=== PATIENT | female | born 2000 | race Caucasian/White ===

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

== ENCOUNTER 2019-02-15 22:24 | Emergency (ER) | payer OTHER ==
[~2019-02-15] VITALS: Ht 162.6 cm; Wt 64.4 kg
[~2019-02-15 22:24] MED LIST changes: +ANUSOL-HC25 MG PR
--- OUTSIDE RECORDS SUMMARY | 2019-02-15 22:26 | XMS ---
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 Luz has no Care Guidelines for this patient. Care History Medical/Surgical 07/21/2018 [facility] - CHW RECEIVED- ED PHYSICIAN CONSULT- HELP PATIENT WITH SETTING UP INSURANCE AND WITH A PCP. - PATIENT PHONE NUMBER IS NO LONGER IN SERVICE. - CHW WILL SEND A NO PCP LETTER TO PATIENT. - PLEASE ASK FOR MOST RECENT-ACTIVE NUMBER FOR PATIENT - IF PATIENT IS SEEN IN THE ED DURING BUSINESS HOURS PLEASE CONTACT MESERET TO HAVE PATIENT SET UP WITH [phone]. E.D. VISIT COUNT (12 MO.) 3 [facility] TOTAL 3 NOTE: Visits indicate total known visits. ED/UCC VISIT TRACKING (12 MO.) 02/15/2019 22:25 [facility] [place] TYPE: Emergency COMPLAINT: - URINE PROBLEM, LOWER BACK PAIN NON INJURY 11/03/2018 14:00 [facility] [place] TYPE: Emergency COMPLAINT: - HEADACHE/NECK STIFFNESS DIAGNOSES: - Fever, unspecified - Viral infection, unspecified 07/18/2018 20:43 [facility] [place] TYPE: Emergency COMPLAINT: - ABD PAIN DIAGNOSES: - Residual hemorrhoidal skin tags - Melena INPATIENT VISIT TRACKING (12 MO.) No inpatient visits to display in this time frame [email or web address]
== END 2019-02-16 00:30 | disposition home or self-care (01) ==
LOC: ED 22:24
DX: R10.9 Unspecified abdominal pain (principal); G43.909 Migraine, unspecified, not intractable, without status migrainosus
CPT/HCPCS: 74176; 81001; 84703; 99284-25

== ENCOUNTER 2019-07-14 22:00 | Emergency (ER) | payer OTHER ==
[~2019-07-14] VITALS: Ht 162.6 cm; Wt 66.7 kg
[~2019-07-14 22:00] MED LIST changes: +PANTOPRAZOLE SO40 MG PO; +ZOFRAN4 MG SL
--- OUTSIDE RECORDS SUMMARY | 2019-07-14 22:04 | XMS ---
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 Care History Medical/Surgical 03/23/2019 [facility] - PATIENT HAS AN ESTABLISHING CARE APT WITH DR LAYTON ON 04/15/19. - Patient is currently established with [facility]. If patient is seen in the ED during business hours. Please contact CHWs at [facility]. Care Recommendation: This patient has had 5 or more Emergency Department visits in the last 12 months.\T\nbsp; Patient requires education on the scope and purpose of the ED as an acute care provider not a Primary Care Provider and should not be utilized for chronic conditions.\T\nbsp; These are guidelines and the provider should exercise clinical judgment when providing care. 07/21/2018 [facility] - CHW RECEIVED- ED PHYSICIAN [...] MESERET TO HAVE PATIENT SET UP WITH [id number]. E.D. VISIT COUNT (12 MO.) 7 [facility] TOTAL 7 NOTE: Visits indicate total known visits. ED/UCC VISIT TRACKING (12 MO.) 07/14/2019 22:01 [facility] [place] TYPE: Emergency COMPLAINT: - CHEST PAIN 06/12/2019 19:07 [facility] [place] TYPE: Emergency COMPLAINT: - BLOOD IN STOOL, ABD PAIN DIAGNOSES: - Melena 03/25/2019 09:[address] [facility] [place] TYPE: Emergency COMPLAINT: - VOMITING BLOOD DIAGNOSES: - Unspecified abdominal pain - Migraine, unsp, not intractable, without status migrainosus - Gastritis, unspecified, without bleeding 03/20/2019 22:[address] [facility] [place] TYPE: Emergency COMPLAINT: - ABD PAIN,ABNORMAL BOWEL MOVEMENTS [facility]2019 [facility] [place] [facility] COMPLAINT: - URINE PROBLEM, LOWER BACK PAIN NON INJURY DIAGNOSES: - Unspecified abdominal pain - Migraine, unsp, not intractable, without status migrainosus 11/03/2018 14:00 [facility] [place] TYPE: Emergency COMPLAINT: - HEADACHE/NECK STIFFNESS DIAGNOSES: - Fever, unspecified - Viral infection, unspecified 07/18/2018 20:43 [facility] [place] TYPE: Emergency COMPLAINT: - ABD PAIN DIAGNOSES: - Residual hemorrhoidal skin tags - Melena INPATIENT VISIT TRACKING (12 MO.) 03/20/2019 22:38 [facility] [place] TYPE: Observation COMPLAINT: - GI BLEED DIAGNOSES: - Acute posthemorrhagic anemia - Personal history of urinary (tract) infections - Noninfective gastroenteritis and colitis, unspecified - Gastrointestinal hemorrhage, unspecified - Gastritis, unspecified, without bleeding [email or web address]
--- NOTE | 2019-07-14 23:05 | EKG ---
[facility] [address] [place], [place] [address] Signed Sinus rhythm with sinus arrhythmia with short MD Rightward axis Borderline ECG When compared with ECG of 14-JUL-2019 22:09, (Unconfirmed) No significant change was found Confirmed by SERGE LAYTON MD ([id number]) on 07/14/2019 11:05:38 PM Electronically Signed By: SERGE LAYTON MD 07/14/19 2305 PATIENT NAME: MARIBEL PEOPLES Electrocardiogram DATE OF : [birth year] PHYSICIAN: SERGE LAYTON MD REPORT #: [id number] REPORT IS CONFIDENTIAL AND NOT TO BE RELEASED WITHOUT AUTHORIZATION
--- NOTE | 2019-07-14 23:05 | EKG ---
[facility] [address] [place] [address] Signed Sinus tachycardia with short CA Rightward axis ST \T\ T wave abnormality, consider inferior ischemia Abnormal ECG No previous ECGs available Confirmed by SERGE LAYTON MD ([id number]) on 07/14/2019 11:05:33 PM Electronically Signed By: SERGE LAYTON MD 07/14/19 2305 PATIENT NAME: MARIBEL PEOPLES Electrocardiogram DATE OF : [birth year] PHYSICIAN: SERGE LAYTON MD REPORT #: [id number] REPORT IS CONFIDENTIAL AND NOT TO BE RELEASED WITHOUT AUTHORIZATION
== END 2019-07-15 01:11 | disposition home or self-care (01) ==
LOC: ED 22:00
DX: R00.2 Palpitations (principal)
CPT/HCPCS: 71045; 80053; 84443; 85025; 93005; 93010; 99285-25; J7030

== ENCOUNTER → 2019-08-03 | Emergency (ER) | payer OTHER ==
[~2019-08-03] VITALS: Ht 162.6 cm; Wt 62.7 kg
--- OUTSIDE RECORDS SUMMARY | 2019-08-03 00:22 | XMS ---
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 PHONE: [phone] Luz has no Care Guidelines for this patient. Care History Medical/Surgical 03/23/2019 [facility] - PATIENT HAS AN ESTABLISHING CARE APT WITH DR LAYTON ON 04/15/19. - Patient is currently established with [facility]. If patient is seen in the ED during business hours. Please contact CHWs at [facility]. Care Recommendation: This patient has had 5 or more Emergency Department visits in the last 12 months.\T\nbsp; Patient requires education on the scope and purpose of the ED as an acute care provider not a Primary Care Provider and should not be utilized for chronic conditions.\T\nbsp; These are guidelines and the provider should exercise clinical judgment when providing care. 07/21/2018 [facility] - CHW RECEIVED- ED PHYSICIAN [...] MESERET TO HAVE PATIENT SET UP WITH [id number]. E.D. VISIT COUNT (12 MO.) 7 [facility] TOTAL 7 NOTE: Visits indicate total known visits. ED/UCC VISIT TRACKING (12 MO.) 08/03/2019 00:20 [facility] [place] TYPE: Emergency COMPLAINT: - VOMITING 07/14/2019 22:[address] [facility] [facility] [place] TYPE: Emergency COMPLAINT: - CHEST PAIN DIAGNOSES: - Palpitations 06/12/2019 19:[address] [facility] [facility] [place] TYPE: Emergency COMPLAINT: - BLOOD IN STOOL, ABD PAIN DIAGNOSES: - Melena 03/25/2019 09:48 [facility] [place] [facility] [place] TYPE: Emergency COMPLAINT: - VOMITING BLOOD DIAGNOSES: - Unspecified abdominal pain - Migraine, unsp, not intractable, without status migrainosus - Gastritis, unspecified, without bleeding 03/20/2019 22:37 [facility] [place] TYPE: Emergency COMPLAINT: - ABD PAIN,ABNORMAL BOWEL MOVEMENTS 02/15/2019 22:25 [facility] [place] TYPE: Emergency COMPLAINT: - URINE PROBLEM, LOWER BACK PAIN NON INJURY DIAGNOSES: - Unspecified abdominal pain - Migraine, unsp, not intractable, without status migrainosus 11/03/2018 14:[address] [facility] [facility] [place] TYPE: Emergency COMPLAINT: - HEADACHE/NECK STIFFNESS DIAGNOSES: - Fever, unspecified - Viral infection, unspecified INPATIENT VISIT TRACKING (12 MO.) 03/20/2019 22:38 [facility] [place] [facility] [place] TYPE: Observation COMPLAINT: - GI BLEED DIAGNOSES: - Acute posthemorrhagic anemia - Personal history of urinary (tract) infections - Noninfective gastroenteritis and colitis, unspecified - Gastrointestinal hemorrhage, unspecified - Gastritis, unspecified, without bleeding [email or web address]
== END ==
LOC: ED 00:19
DX: O21.9 Vomiting of pregnancy, unspecified (principal)
CPT/HCPCS: 80053; 81001; 83735; 84702; 84703; 85025; 87088; 96361; 96374; 96375; 99284-25; C9113; J2405; J7030; J7040

== ENCOUNTER 2020-03-08 11:20 | Inpatient (IN) | payer OTHER ==
--- NOTE | 2020-03-10 13:06 | PR ---
[facility] [address] [place], [place] [address] Signed Progress Notes IP Datetime Report Generated by CPN: 03/10/2020 13:06 PROGRESS NOTES: [id number] Impression: Reassuring heart rate Plan: Continue present management VITAL SIGNS: [id number] Vital Signs: Reviewed; Within Normal Limits EXAM: [id number] Dilatation: 1.0 Effacement: 50 Station: -3 MEMBRANES: [id number] Membrane Status: Intact Comments: Pt resting well. FHT reassuring. Continue cytotec cervical ripening per protocol Fetus A: [id number] FHR Baseline: 120 Variability: Moderate 6-25bpm Accelerations: 15X15 Decelerations: None FHR Category: Category I Presentation: Vertex Comments on Fetus A: No evidence of metabolic acidosis Fetus B: [id number] Signing Physician: Gloria Olivarez DO Copies: ~ *Electronically Signed* 03/10/20 1306 GLORIA OLIVAREZ DO PATIENT NAME: MARIBEL PEOPLES PROGRESS NOTE DATE OF : 99 PHYSICIAN: GLORIA OLIVAREZ DO RPT #: [id number] REPORT IS CONFIDENTIAL AND NOT TO BE RELEASED WITHOUT AUTHORIZATION
--- NOTE | 2020-03-10 18:30 | PR ---
[facility] [address] [facility] [place], [place] [address] Signed Progress Notes IP Datetime Report Generated by CPN: 03/10/2020 18:30 PROGRESS NOTES: [id number] Impression: Normal progression of labor; Reassuring heart rate Plan: Continue present management Other Plans: Epidural on request Informed Consent Obtain: Vaginal Delivery VITAL SIGNS: [id number] Vital Signs: Reviewed; Within Normal Limits EXAM: [id number] Dilatation: 2.0 Effacement: 90 Station: -1 MEMBRANES: [id number] Membrane Status: Intact Comments: Pt doing well. Uncomfortable w/ contractions. SROM 14:52. Pt considering epidural in the near future. Reviewed epidural and anticipated course of labor. All questions answered Fetus A: [id number] FHR Baseline: 120 Variability: Moderate 6-25bpm Accelerations: 15X15 Decelerations: None FHR Category: Category I Presentation: Vertex Comments on Fetus A: No evidence of metabolic acidosis Fetus B: [id number] Signing Physician: Gloria Olivarez DO Copies: ~ *Electronically Signed* 03/10/20 1830 GLORIA OLIVAREZ DO PATIENT NAME: MARIBEL PEOPLES PROGRESS NOTE DATE OF : [birth year] PHYSICIAN: GLORIA OLIVAREZ DO RPT #: [id number] REPORT IS CONFIDENTIAL AND NOT TO BE RELEASED WITHOUT AUTHORIZATION
--- NOTE | 2020-03-10 21:22 | PR ---
[facility] [address] [place], [place] [address] Signed Progress Notes IP Datetime Report Generated by CPN: 03/10/2020 21:22 PROGRESS NOTES: [id number] Impression: Normal progression of labor; Reassuring heart rate Procedures: Artificial ROM; Intrauterine Pressure Catheter; Scalp Electrode Plan: Continue present management Other Plans: Epidural on request Informed Consent Obtain: Vaginal Delivery VITAL SIGNS: [id number] Vital Signs: Reviewed; Within Normal Limits EXAM: [id number] Dilatation: 5.0 Effacement: 100 Station: -1 MEMBRANES: [id number] Membrane Status: Intact Comments: Pt seen and examined. Doing well. Comfortable w/ epidural. On cevical exam, pt now 5cm with large residual forebag. AROM performed on residual bag for moderate amount of clear fluid. FSE and IUPC placed after discussing with patient. Will continue expectant management Fetus A: [id number] FHR Baseline: 125 Variability: Moderate 6-25bpm Accelerations: 15X15 Decelerations: None FHR Category: Category I Presentation: Vertex Other Presentation: JACKIE Comments on Fetus A: No evidence of metabolic acidosis Fetus B: [id number] Signing Physician: Gloria Olivarez DO Copies: ~ *Electronically Signed* 03/10/202121 GLORIA OLIVAREZ DO PATIENT NAME: MARIBEL PEOPLES PROGRESS NOTE DATE OF : [birth year] PHYSICIAN: GLORIA OLIVAREZ DO RPT #: [id number] REPORT IS CONFIDENTIAL AND NOT TO BE RELEASED WITHOUT AUTHORIZATION
--- NOTE | 2020-03-12 08:20 | PR ---
[facility] [address] [place], [place] [address] Signed PP Progress Notes Datetime Report Generated by CPN: 03/12/2020 08:20 SUBJECTIVE: [id number] Pain: Within normal limits Nausea/Vomiting: Denies Flatus: Yes Bowel Movement: No Vital Signs: [id number] Vital Signs: Reviewed EXAM: [id number] Cardiovascular: Normal Respiratory: Normal Abdomen/Uterus: Normal Lochia: Not Done Vulva/Perineum: Not Done CVA Tenderness: Normal Extremities: Normal Incision: Not Applicable Progress: Normal Exam Comments: Fundus firm U-2 nontender IMPRESSION/PLAN/PROCEDURES: [id number] Impression: Normal progression Plan: Discharge Progress Notes: Pt seen and examined. Doing well. Ambulating and tolerating full diet. Weber just removed. well. Desires d/c home. Planning IUD for pp contraception. Signing Physician: Gloria Olivarez DO Copies: ~ *Electronically Signed* 03/12/20819 GLORIA OLIVAREZ DO PATIENT NAME: SHELTONMARIBEL PROGRESS NOTE DATE OF : 99 PHYSICIAN: GLORIA OLIVAREZ DO [facility] #: [id number] REPORT IS CONFIDENTIAL AND NOT TO BE RELEASED WITHOUT AUTHORIZATION
== END 2020-03-12 15:25 | disposition home or self-care (01) | DRG 806 ==
LOC: FBC 03-09 11:14
PROVIDERS: ADMIT Obstetrics & Gynecology
PROC: 3E0P7VZ Introduction of Hormone into Female Reproductive, Via Natural or Artificial Opening (ICD-10-PCS; 2020-03-10)
PROC: 10H07YZ Insertion of Other Device into Products of Conception, Via Natural or Artificial Opening (ICD-10-PCS; 2020-03-10)
PROC: 00HU33Z Insertion of Infusion Device into Spinal Canal, Percutaneous Approach (ICD-10-PCS; 2020-03-10)
PROC: 3E0R3BZ Introduction of Anesthetic Agent into Spinal Canal, Percutaneous Approach (ICD-10-PCS; 2020-03-10)
PROC: 0KQM0ZZ Repair Perineum Muscle, Open Approach (ICD-10-PCS; principal; 2020-03-11)
PROC: 10E0XZZ Delivery of Products of Conception, External Approach (ICD-10-PCS; principal; 2020-03-11)
DX: O36.63X0 Maternal care for excessive fetal growth, third trimester, not applicable or unspecified (principal); D62 Acute posthemorrhagic anemia; Z37.0 Single live birth; O99.324 Drug use complicating childbirth; Z3A.40 40 weeks gestation of pregnancy; O70.1 Second degree perineal laceration during delivery; O99.02 Anemia complicating childbirth; D50.9 Iron deficiency anemia, unspecified; F12.90 Cannabis use, unspecified, uncomplicated; Z79.899 Other long term (current) drug therapy
CPT/HCPCS: 36415; 85027; A9270; J2795; J3010; J7121

== ENCOUNTER 2020-04-21 19:21 | Emergency (ER) | payer OTHER ==
[~2020-04-21] VITALS: Ht 160 cm; Wt 71.2 kg
--- OUTSIDE RECORDS SUMMARY | 2020-04-21 19:26 | XMS ---
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 Care History Medical/Surgical 08/03/2019 [facility] - PATIENT HAS AN APT WITH DR SOFI LOPEZ- 08/07/19. 03/23/2019 [facility] - PATIENT HAS AN ESTABLISHING CARE APT WITH DR LAYTON ON 04/15/19. - Patient is currently established with [facility]. If patient is seen in the ED during business hours. Please contact CHWs at [facility]. Care Recommendation: This patient has had 5 or more Emergency Department visits in the last 12 months.\T\nbsp; Patient requires education on the scope and purpose of the ED as an acute care provider not a Primary Care Provider and should not be utilized for chronic conditions.\T\nbsp; These are guidelines and the provider should exercise clinical judgment when providing care. 07/21/2018 [facility] - CHW [...] MESERET TO HAVE PATIENT SET UP WITH [id number]. E.D. VISIT COUNT (12 MO.) 4 [facility] TOTAL 4 NOTE: Visits indicate total known visits. ED/UCC VISIT TRACKING (12 MO.) 04/21/2020 19:23 [facility] [place] TYPE: Emergency COMPLAINT: - EXCESSIVE BLEEDING POST CHILDBIRTH 08/03/2019 00:[address] [facility] [place]: Emergency COMPLAINT: - VOMITING DIAGNOSES: - Unspecified abdominal pain - Vomiting of , unspecified 07/14/2019 22:01 [facility] [place] TYPE: Emergency COMPLAINT: - CHEST PAIN DIAGNOSES: - Palpitations [facility]12[facility]2019 [facility]:07 [facility] [place] [facility] COMPLAINT: - BLOOD IN STOOL, ABD PAIN DIAGNOSES: - Melena INPATIENT VISIT TRACKING (12 MO.) 03/10/2020 00:04 [facility] [place] TYPE: [facility] COMPLAINT: - INDUCTION DIAGNOSES: - Anemia complicating childbirth - Second degree perineal laceration during delivery - Drug use complicating childbirth - Acute posthemorrhagic anemia - Maternal care for excessive growth, third trimester, no - Second degree perineal laceration during delivery - Iron deficiency anemia, unspecified - Other halfway (current) drug therapy - Acute posthemorrhagic anemia - Cannabis use, unspecified, uncomplicated - Anemia complicating childbirth - Single live - Iron deficiency anemia, unspecified - 40 weeks gestation of - Cannabis use, unspecified, uncomplicated - Single live - 40 weeks gestation of - Drug use complicating childbirth - 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
[2020-04-21] MEDS ORDERED: IRON325 M1 PO (19:35)
[2020-04-21] MEDS ORDERED: IBU800 MG PO (21:39)
[2020-04-21] MEDS ORDERED: PROVERA10 MG PO (21:39)
== END 2020-04-21 21:50 | disposition home or self-care (01) ==
LOC: ED 19:21
DX: O72.1 Other immediate postpartum hemorrhage (principal)
CPT/HCPCS: 76830; 76856; 84702; 85025; 99284-25; J7030

== ENCOUNTER 2021-09-14 18:35 | Emergency (ER) | payer OTHER ==
[~2021-09-14] VITALS: Ht 160 cm; Wt 79.5 kg
[~2021-09-14 18:35] MED LIST changes: +IBU800 MG PO; +IRON325 M1 PO; +PROVERA10 MG PO
== END 2021-09-14 22:40 | disposition home or self-care (01) ==
LOC: ED 18:35
DX: H57.11 Ocular pain, right eye (principal); G43.909 Migraine, unspecified, not intractable, without status migrainosus
CPT/HCPCS: 99283

== ENCOUNTER 2021-11-22 10:19 | Emergency (ER) | payer OTHER ==
[~2021-11-22] VITALS: Ht 160 cm; Wt 79.5 kg
== END 2021-11-22 14:06 | disposition home or self-care (01) ==
LOC: ED 10:19
DX: N83.201 Unspecified ovarian cyst, right side (principal); G43.909 Migraine, unspecified, not intractable, without status migrainosus
CPT/HCPCS: 36415; 76830; 76856; 80053; 81001; 84703; 85025; 99284-25

== ENCOUNTER 2024-12-03 23:06 | Emergency (ER) | payer BC ==
[~2024-12-03] VITALS: Ht 160 cm; Wt 80.0 kg
[2024-12-03] MEDS ORDERED: LIDOCAINE/RACEPINEP/TETRACAINE 3 ML SYR TOP ONE (23:30)
[2024-12-04 00:24] VITALS: BP 118/68
== END 2024-12-04 00:24 | disposition home or self-care (01) ==
LOC: ED 23:06
DX: S61.012A Laceration without foreign body of left thumb without damage to nail, initial encounter (principal); G43.909 Migraine, unspecified, not intractable, without status migrainosus; W26.0XXA Contact with knife, initial encounter
CPT/HCPCS: 12001; 99282